=== PATIENT | male | born 1990 | race Caucasian/White ===

== ENCOUNTER 2016-11-19 01:59 | Emergency (ER) | payer BC ==
[2016-11-19 02:17] VITALS: BMI 26.7
[2016-11-19] MEDS ORDERED: LIDOCAINE 1% 5 ML (METHYLPARABEN FREE) INF ONE (04:31)
[2016-11-19] MEDS ORDERED: ONDANSETRON HCL 4 MG ODT TAB PO ONE (04:33)
[2016-11-19] MEDS ORDERED: HYDROCODONE 5 MG/ACETAMIN 325 MG TAB PO ONE (04:33)
--- NOTE | 2016-11-19 04:34 | EDPRACDOC ---
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 C/o R lip lac, headache, nausea. Denies neck pain, cp, sob, abd pain, loss of control bowel or bladder. Tetanus UTD Location: Reports: Generalized Pain Quality: Reports: Mild, Throbbing Modifying Factors: Denies: Medication, Exposure to light, Cold therapy, Immobilization, Movement, Rest Associated Signs and Symptoms: Reports: Facial Pain, Loss of Consciousness, Nausea/Vomiting ED Past Medical History - History Reviewed Yes Nurses notes reviewed and agree except as marked - Patient Medical History Psychological History: Denies: Depression Surgical History: Reports: Appendectomy - Social Medical History Smoking Status: Never smoker ETOH: Social Substance Abuse: None EDM Review of Systems - Review of Systems Constitutional: No Symptoms Reported. negative: Fever, Chills, Weakness, Fatigue, Loss of Appetite Eyes: No Symptoms Reported. negative: Redness, Blurred Vision, Double Vision, Discharge, Pain, Light Sensitive, Photophobia Ears: No Symptoms Reported. negative: Pain, Hearing Loss, Drainage, Ear Pulling Throat: No Symptoms Reported. negative: Pain, Swelling Nose: No Symptoms Reported. negative: Congestion, Bleeding, Discharge, Injection, Swelling, Deformity, Ecchymosis, Tender, Abrasion, Laceration Mouth: Pain Respiratory: No Symptoms Reported. negative: Cough, Brassy Cough, Barky Cough, Shortness of Breath, Wheezing, Hemoptysis Cardiovascular: No Symptoms Reported. negative: Chest Pain, Palpitations, Syncope, Edema, Orthopnea, PND, Skin Mottling, Cyanosis Gastrointestinal: Nausea Genitourinary: No Symptoms Reported. negative: Dysuria, Hematuria, Frequency, Discharge, Bleeding, Testicular Pain, Neurological: No Symptoms Reported. negative: Headache, Dizziness, Seizure, Numbness, Weakness, Speech Difficulty, Gait Difficulty Musculoskeletal: No Symptoms Reported. negative: Neck, Chestwall, Ribs, Back, Shoulder, Arm, Elbow, Forearm, Wrist, Hand, Pelvis, Hip, Femur, Knee, Leg, Ankle , Foot Integumentary: Wound Allergic/Immunologic: No Symptoms Reported. negative: Hives, Itching Hematologic: No Symptoms Reported. negative: Lymphadenopathy, Easy Bruising, Easy Bleeding Psychiatric: No Symptoms Reported. negative: Anxiety, Depression, Hallucinations, Insomnia, Suicidal ED Procedures - Suture/Laceration Suture #1 Right Upper Lateral Lip Wound Length (cm): 2 Wound's Depth, Shape: flap Wound Explored: clean Irrigated w/ Saline (ccs): 20 Betadine Prep?: No Anesthesia: 1% Lidocaine Volume Anesthetic (ccs): 2 Wound Margins: Vermilion borders aligned Wound Repaired With: Sutures Suture Size/Type: 6:0, nylon Number of Sutures: 3 Layer Closure?: Yes Deep Layer Suture Size/Type: 6:0, dexon Number Deep Layer Sutures: 3 Sterile Dressing Applied?: No - Physical Exam Constitutional: Alert Oriented to: Time, Person, Place Last recorded Vital Signs: Last Vital Signs Temp 97.8 F 11/19/16 02:15 Pulse 108 11/19/16 02:15 Resp 20 11/19/16 02:15 BP 137/85 11/19/16 02:15 Pulse Ox 96 11/19/16 02:15 Oxygen Pulse Oxygen Saturation 96 O2 Device Room Air Oxygen Flow Rate Fraction of Inspired Oxygen ( FIO2) - HEENT Head: Normal ( normocephalic) Eye Exam: Normal (PERRL, EOMI, Sclera white) Oropharynx: Normal (Pharynx:Moist without exudate,Gums-no swelling) Tympanic Membrane: Normal ENT EAC: Normal TMJ: Normal Nose: No Symptoms Reported (septum midline) Neck: Normal (FROM, trachea at midline) HEENT Comment: R upper lip laceration flap 1.5 cm - Respiratory/Cardiovascular Respiratory: Normal - CTA (BBS clear to auscultation without adventitious sounds ) Cardiovascular: Normal (RRR without murmur, gallop or rub) - GI Auscultation: Normal (NABS) Palpation: Normal (Soft,No rebound or guarding, non distended) Tenderness: Non tender, Other (no LUQ or ruq tenderness) Singh's Sign: Negative - Musculoskeletal Back: Normal (Non-Tender) Extremities: Normal (Normal tone, Pulses 2+ No cyanosis or edema, FROM) - Integumentary Skin: Normal, Warm, Dry Lymphatics: Normal (no adenopathy) - Neurologic Memory Impaired: Normal Motor Function: Normal (Normal tone, Pulses 2+ No cyanosis or edema, FROM) Mood Description: Normal Perception: Normal - Differential Diagnosis Closed Head Injury, Laceration, Facial Bone Fx - Diagnostic Imaging Head Image interpreted by: Radiologist Diagnostic Imaging Comments: IMPRESSION: 1. No evidence of traumatic intracranial injury or fracture. 2. No evidence of fracture or dislocation with regard to the maxillofacial structures. 3. Soft tissue laceration at the right upper lip. Decision Time to Discharge: 05:57 - Departure Disposition: Home Condition: Good Final Diagnosis: R lip lac 2 cm intermediate Concussion Qualifiers: Encounter type: initial encounter Loss of consciousness presence/duration: with LOC of 30 min or less Qualified Code(s): S06.0X1A - Concussion with loss of consciousness of 30 minutes or less, initial encounter Instructions: Laceration (ED), Concussion (ED) Education/Counseling Given To: Patient Education/Counseling Given Regarding: Diagnosis, Treatment, Follow Up Referrals: None,No Provider [Primary Care Provider] - One Week Ivan Howell MD [Staff Physician] - One Week Prescriptions: Amoxicillin Trihydrate [Amoxicillin] 500 mg PO TID #21 tab Hydrocodone Bit/Acetaminophen [Lortab 5/325] 1 tab PO Q4-6H PRN #15 tab PRN Reason: Pain Ondansetron HCl [Zofran] 4 mg PO Q8H PRN #15 tab PRN Reason: Nausea/Vomiting Additional Instructions: Sutures removed in 5-7 days. Return for worse or different symptoms.
[2016-11-19 05:41] VITALS: BP 142/90; PULSE 92
--- NOTE | 2016-11-19 05:50 | DIRPT ---
CLINICAL DATA: Tripped and hit head on fireplace mantel. Gash on the lip. Initial encounter. EXAM: CT HEAD WITHOUT CONTRAST CT MAXILLOFACIAL WITHOUT CONTRAST TECHNIQUE: Multidetector CT imaging of the head and maxillofacial structures were performed using the standard protocol without intravenous contrast. Multiplanar CT image reconstructions of the maxillofacial structures were also generated. COMPARISON: None. FINDINGS: CT HEAD FINDINGS There is no evidence of acute infarction, mass lesion, or intra- or extra-axial hemorrhage on CT. The posterior fossa, including the cerebellum, brainstem and fourth ventricle, is within normal limits. The third and lateral ventricles, and basal ganglia are unremarkable in appearance. The cerebral hemispheres are symmetric in appearance, with normal hill-white differentiation. No mass effect or midline shift is seen. There is no evidence of fracture; visualized osseous structures are unremarkable in appearance. The visualized portions of the orbits are within normal limits. The paranasal sinuses and mastoid air cells are well-aerated. No significant soft tissue abnormalities are seen. CT MAXILLOFACIAL FINDINGS There is no evidence of fracture or dislocation. The maxilla and mandible appear intact. The nasal bone is unremarkable in appearance. The visualized dentition demonstrates no acute abnormality. The orbits are intact bilaterally. The visualized paranasal sinuses and mastoid air cells are well-aerated. A soft tissue laceration is noted at the right upper lip. The parapharyngeal fat planes are preserved. The nasopharynx, oropharynx and hypopharynx are unremarkable in appearance. The visualized portions of the valleculae and piriform sinuses are grossly unremarkable. The parotid and submandibular glands are within normal limits. No cervical lymphadenopathy is seen. IMPRESSION: 1. No evidence of traumatic intracranial injury or fracture. 2. No evidence of fracture or dislocation with regard to the maxillofacial structures. 3. Soft tissue laceration at the right upper lip. Electronically Signed By: Akira Reyes M.D. On: 11/19/2016 05:47
[2016-11-19 06:19] VITALS: TEMP 98
== END 2016-11-19 06:18 | disposition home or self-care (01) ==
LOC: ED 01:59
DX: S01.511A Laceration without foreign body of lip, initial encounter (principal); S06.0X1A Concussion with loss of consciousness of 30 minutes or less, initial encounter; W01.0XXA Fall on same level from slipping, tripping and stumbling without subsequent striking against object, initial encounter
CPT/HCPCS: 12051; 70450; 70486; 99284; J3490

== ENCOUNTER 2016-11-20 10:53 | Emergency (ER) | payer BC ==
[2016-11-20 11:04] VITALS: TEMP 98.2; BMI 26.3
--- NOTE | 2016-11-20 12:20 | EDPRACDOC ---
- General Information Chief Complaint: Fall Stated Complaint: DIZZY Time Seen by Provider: 11/20/16 12:14 Information Source: Patient Mode Of Arrival: Car Home Medications: Home Medications Amoxicillin Trihydrate [Amoxicillin] 500 mg PO TID #21 tab 11/19/16 Hydrocodone Bit/Acetaminophen [Lortab 5/325] 1 tab PO Q4-6H PRN #15 tab Ondansetron HCl [Zofran] 4 mg PO Q8H PRN #15 tab 11/19/16 Meclizine HCl [Antivert] 25 mg PO Q8H PRN #20 tab 11/20/16 Allergies/Adverse Reactions: Allergies Allergy/AdvReac Type Severity Reaction Status Date / Time No Known Allergies Allergy Verified 11/19/16 02:17 - History of Present Illness Onset: SUNDAY HPI: Pt c/o dizziness, confusion, blurred vision after falling 2 days ago. Denies fever, earache, sore throat, congestion, cough, cp, sob, abd pain, n/v, changes in bowel or bladder, rash. 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 Location: Reports: Generalized Pain Quality: Reports: Mild, Moderate, Throbbing Modifying Factors: improves with: Exposure to light Prior work up: Reports: CT Associated Signs and Symptoms: Reports: Confusion, Vision Changes ED Past Medical History - History Reviewed Yes Nurses notes reviewed and agree except as marked - Patient Medical History Psychological History: Denies: Depression Surgical History: Reports: Appendectomy - Social Medical History Smoking Status: Never smoker ETOH: Social Substance Abuse: None EDM Review of Systems - Review of Systems Constitutional: No Symptoms Reported. negative: Fever, Chills, Weakness, Fatigue, Loss of Appetite Eyes: Blurred Vision Ears: No Symptoms Reported. negative: Pain, Hearing Loss, Drainage, Ear Pulling Throat: No Symptoms Reported. negative: Pain, Swelling Nose: No Symptoms Reported. negative: Congestion, Bleeding, Discharge, Injection, Swelling, Deformity, Ecchymosis, Tender, Abrasion, Laceration Mouth: No Symptoms Reported. negative: Pain, Drooling Respiratory: No Symptoms Reported. negative: Cough, Brassy Cough, Barky Cough, Shortness of Breath, Wheezing, Hemoptysis Cardiovascular: No Symptoms Reported. negative: Chest Pain, Palpitations, Syncope, Edema, Orthopnea, PND, Skin Mottling, Cyanosis Gastrointestinal: No Symptoms Reported. negative: Pain, Constipation, Nausea, Vomiting, Diarrhea, Melena, Formula Intolerance Genitourinary: No Symptoms Reported. negative: Dysuria, Hematuria, Frequency, Discharge, Bleeding, Testicular Pain, Neurological: No Symptoms Reported. negative: Headache, Dizziness, Seizure, Numbness, Weakness, Speech Difficulty, Gait Difficulty Musculoskeletal: No Symptoms Reported. negative: Neck, Chestwall, Ribs, Back, Shoulder, Arm, Elbow, Forearm, Wrist, Hand, Pelvis, Hip, Femur, Knee, Leg, Ankle , Foot Integumentary: No Symptoms Reported. negative: Itching, Rash, Bruising, Wound Allergic/Immunologic: No Symptoms Reported. negative: Hives, Itching Hematologic: No Symptoms Reported. negative: Lymphadenopathy, Easy Bruising, Easy Bleeding Psychiatric: No Symptoms Reported. negative: Anxiety, Depression, Hallucinations, Insomnia, Suicidal - Physical Exam Constitutional: Alert Oriented to: Time, Person, Place Last recorded Vital Signs: Last Vital Signs Temp 98.2 F 11/20/16 11:00 Pulse 61 11/20/16 12:12 Resp 18 11/20/16 12:12 BP 159/75 11/20/16 12:12 Pulse Ox 97 11/20/16 12:12 Oxygen Pulse Oxygen Saturation 97 O2 Device Room Air Oxygen Flow Rate Fraction of Inspired Oxygen ( FIO2) - HEENT Head: Normal ( normocephalic) Eye Exam: Normal (PERRL, EOMI, Sclera white) Oropharynx: Normal (Pharynx:Moist without exudate,Gums-no swelling) Tympanic Membrane: Normal ENT EAC: Normal TMJ: Normal Nose: No Symptoms Reported (septum midline) Neck: Normal (FROM, trachea at midline) HEENT Comment: healing R upper lip laceration without exudate or erythema - Respiratory/Cardiovascular Respiratory: Normal - CTA (BBS clear to auscultation without adventitious sounds ) Cardiovascular: Normal (RRR without murmur, gallop or rub) - Integumentary Skin: Normal, Warm, Dry Lymphatics: Normal (no adenopathy) - Neurologic Memory Impaired: Normal Motor Function: Normal (Normal tone, Pulses 2+ No cyanosis or edema, FROM) Mood Description: Normal Perception: Normal - Differential Diagnosis Migraine, Muscular Contraction, Post-traumatic, Other (post-concussive syndrome) - Diagnostic Imaging Head Image interpreted by: Radiologist IMPRESSION: No acute intracranial process. - Additional Information Discussed with Dr Haskins, need to repeat ct head due to new symptoms. Decision Time to Discharge: 14:55 - Departure Disposition: Home Condition: Good Final Diagnosis: Post concussion syndrome Instructions: RICE: Routine Care for Injuries, Post Concussion Syndrome (ED) Education/Counseling Given To: Patient, Family Member Education/Counseling Given Regarding: Diagnosis, Treatment, Follow Up Referrals: None,No Provider [NonStaff] - One Week Yunior White II, MD [Staff Physician] - One Week Ramiro Medrano MD [Staff Physician] - One Week Prescriptions: Meclizine HCl [Antivert] 25 mg PO Q8H PRN #20 tab PRN Reason: Vertigo Additional Instructions: Return for worse or different symptoms.
[2016-11-20 14:26] VITALS: BP 128/65; PULSE 54
--- NOTE | 2016-11-20 14:49 | DIRPT ---
CLINICAL DATA: Patient with dizziness and blurred vision. Status post fall 2 days prior EXAM: CT HEAD WITHOUT CONTRAST TECHNIQUE: Contiguous axial images were obtained from the base of the skull through the vertex without intravenous contrast. COMPARISON: Head CT 11/19/2016 FINDINGS: Ventricles and sulci are appropriate for patient's age. No evidence for acute cortically based infarct, intracranial hemorrhage, mass lesion or mass-effect. Orbits are unremarkable. Paranasal sinuses are well aerated. Mastoid air cells are unremarkable. Calvarium is intact. IMPRESSION: No acute intracranial process. Electronically Signed By: Pro Valladares M.D. On: 11/20/2016 14:47
== END 2016-11-20 15:05 | disposition home or self-care (01) ==
LOC: ED 10:53 → EDMC 15:05
DX: F07.81 Postconcussional syndrome (principal)
CPT/HCPCS: 70450; 99283